=== PATIENT | female | born 1965 | race Caucasian/White ===

== ENCOUNTER 2020-09-03 13:04 | Emergency (ER) | payer BC ==
[2020-09-03 13:26] VITALS: BP 147/69; PULSE 101; TEMP 99.1; BMI 19.1
--- NOTE | 2020-09-03 13:26 | PDOC ---
History of Present Illness - General Chief Complaint: Pain, Acute Stated Complaint: LEFT ANKLE INJURY History Source: Patient Exam Limitations: No Limitations - History of Present Illness Initial Comments: 09/03/20 13:20 55 yo F p/w L ankle pain s/p twisting it last night. States she thinks she inverted it. Was able to walk on it initially but shortly thereafter noticed swelling and was not able to put full weight on it. Denies previous injuries to that ankle. Denies any other injuries or falls. No numbness or weakness in the extremity. States she used CBD cream with some relief and has put ice and an sebastián wrap on the ankle. Past History - Medical History Allergies/Adverse Reactions: Allergies Allergy/AdvReac Type Severity Reaction Status Date / Time No Known Allergies Allergy Verified 09/03/20 13:31 COPD: No - Reproductive History Is Patient Now?: No - Immunization History Immunization Up to Date: Yes - Psycho-Social/Smoking History Smoking History: Never smoked Have you smoked in the past 12 months: No Information on smoking cessation initiated: No - Substance Abuse Hx (Audit-C & DAST Scrn) How often the patient has a drink containing alcohol: Never Score: In Men: 4 or > Positive; In Women: 3 or > Positive: 0 Screen Result (Pos requires Nsg. Audit-10AR): Negative In the last yr the pt used illegal drug/Rx for NonMed reason: No Score: Yes response is considered Positive: 0 Screen Result (Positive result requires Nsg. DAST-10): Negative Review of Systems - Review of Systems Able to Perform ROS?: Yes Comments:: 09/03/20 13:23 GENERAL/CONSTITUTIONAL: No fever or chills. No weakness. HEAD, EYES, EARS, NOSE AND THROAT: No change in vision. No ear pain or discharge. No sore throat. CARDIOVASCULAR: No chest pain or shortness of breath. RESPIRATORY: No cough, wheezing, or hemoptysis. GASTROINTESTINAL: No nausea, vomiting, diarrhea or constipation. GENITOURINARY: No dysuria, frequency, or change in urination. MUSCULOSKELETAL: as per HPI SKIN: No rash. NEUROLOGIC: No headache, vertigo, loss of consciousness, or change in strength/sensation. ENDOCRINE: No increased thirst. No abnormal weight change. HEMATOLOGIC/LYMPHATIC: No anemia, easy bleeding, or history of blood clots. ALLERGIC/IMMUNOLOGIC: No hives or skin allergy. *Physical Exam - Vital Signs Last Vital Signs Temp Pulse Resp BP Pulse Ox 99.1 F 101 H 20 147/69 100 09/03/20 13:06 09/03/20 13:06 09/03/20 13:06 09/03/20 13:06 09/03/20 13:06 - Physical Exam 09/03/20 13:24 GENERAL: Well appearing, in no acute distress HEENT: NCAT, conjunctiva not injected, MMM, EOMI NECK: Normal ROM, supple LUNGS: CTAB. Good air entry. No wheezes, No Rhonchi and no crackles HEART: RRR, + s1 s2 ABDOMEN: Soft, nontender, normoactive bowel sounds. No guarding, no rebound. No masses BACK: no midline or paraspinal tenderness. No CVA tenderness. EXTREMITIES: Warm and well perfused. No LE edema. No clubbing or cyanosis. No cords, erythema, or tenderness, Mild swelling L lateral mall but no gross deformities. +ttp just anterior to L lateral mall, no midfoot tenderness, no tenderness at the base of 5th metatarsal, dorsiflexion/plantarflexion slightly limited 2/2 pain, + DP pulses NEUROLOGICAL: Aox3, Speech fluent, face symmetric, tongue/uvula midline. Sensation grossly intact to light touch. SKIN: Warm, dry, normal turgor, no rashes or lesions noted. ED Treatment Course - RADIOLOGY Radiology Studies Ordered: Category Date Time Status ANKLE & FOOT-LEFT* [RAD] Stat Radiology 09/03/20 13:19 Ordered Medical Decision Making - Medical Decision Making 09/03/20 13:26 55 yo F with L ankle pain, possible fx vs. sprain. 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 The [place] of the Department of Health and Human Services has declared, pursuant to the Public Health Service Act 319F-3 (42 U.S.C. 247d-6d), that a covered persons activities related to medical countermeasures against COVID-19 will be immune from liability under Federal and State law. Discharge - Discharge Information Problems reviewed: Yes Clinical Impression/Diagnosis: Ankle sprain Qualifiers: Encounter type: initial encounter Involved ligament of ankle: unspecified ligament Laterality: left Qualified Code(s): S93.402A - Sprain of unspecified ligament of left ankle, initial encounter Condition: Stable Disposition: HOME - Admission No - Follow up/Referral Referrals: Elton Jimenez MD [Staff Physician] - - Patient Discharge Instructions Patient Printed Discharge Instructions: DI for Ankle Sprain Additional Instructions: Your xray did not show any fracture on the preliminary read. You can take tylenol or motrin at home as needed for pain. You are being referred to an orthopedist for follow up. Return to the ED for new or worsening symptoms. - Post Discharge Activity
--- OUTSIDE RECORDS SUMMARY | 2020-09-03 13:29 | XMS ---
:1965 Author Organization [facility] Support Name Relationship Address Phone SE Unavailable Unavailable Unavailable PAULINE SANTOYONATHAN SIGNIFICANT OTHER [address] [place] [address] Re-disclosure Warning The records that you are about to access may contain information from federally- assisted alcohol or drug abuse programs. If such information is present, then the following federally mandated warning applies: This information has been disclosed to you from records protected by federal confidentiality rules (42 CFR part 2). The federal rules prohibit you from making any further disclosure of this information unless further disclosure is expressly permitted by the written consent of the person to whom it pertains or as otherwise permitted by 42 CFR part 2. A general authorization for the release of medical or other information is NOT sufficient for this purpose. The Federal rules restrict any use of the information to criminally investigate or prosecute any alcohol or drug abuse patient.The records that you are about to access may contain highly sensitive health information, the redisclosure of which is protected by Article 27-F of the [facility] Public Health law. If you continue you may haveaccess to information: Regarding HIV / AIDS; Provided by facilities licensed or operated by the [facility] Office of Mental Health; or Provided by the [facility] Office for People With Developmental Disabilities. If such information is present, then the following [facility] mandated warning applies: This information has been disclosed to you from confidential records which are protected by state law. State law prohibits you from making any further disclosure of this information without the specific written consent of the person to whom it pertains, or as otherwise permitted by law. Any unauthorized further disclosure in violation of state law may result in a fine or senior living sentence or both. A general authorization for the release of medical or other information is NOT sufficient authorization for further disclosure. Insurance Providers Payer name Policy type / Policy ID Covered Covered alliance party's Policy Plan Coverage type alliance party ID relationship to [employer] Information [employer] PPO [id number] SP [id number] Results ID Date Data Source [id number] 07/27/2020 06:05:00 PM EDT [facility] Name Value Range Interpretation Description Data Sup porting Code Source(s) Document(s ) 2019 Novel [facility] Coronavirus RNA Interpretation Unspecified Specimen Qualitative MICHELE Probe Detection This lab was ordered by [facility] and reported by [facility]. ID Date Data Source [id number] 05/08/2020 12:00:00 AM EDT [facility] Name Value Range Interpretation Code Description Data Yasmeen rce(s) Supporting Document(s ) 2019-nCoV [facility] RNA XXX MICHELE+probe- Imp This lab was ordered by [facility] and reported by [employer] Procedure
== END 2020-09-03 15:40 | disposition home or self-care (01) ==
LOC: FER 13:04
DX: S93.402A Sprain of unspecified ligament of left ankle, initial encounter (principal)
CPT/HCPCS: 73610-TC-LT-FY; 73630-TC-LT; 99284-25; C9803; U0003